=== PATIENT | female | born 2000 | race Hispanic/Latino ===

== ENCOUNTER 2021-12-24 13:46 | Emergency (ER) | payer OTHER ==
[~2021-12-24] VITALS: Ht 157.5 cm; Wt 48.1 kg
[2021-12-24 14:26] LABS: APPEARANCE,URINE CLOUDY (CLEAR); BILIRUBIN,URINE SMALL (NEGATIVE); COLOR,URINE YELLOW (YELLOW); GLUCOSE, URINE (UA) NEGATIVE (NEGATIVE); KETONES,URINE 15 mg/dL (NEGATIVE); LEUKOCYTE ESTERASE ,URINE NEGATIVE (NEGATIVE); NITRATE,URINE NEGATIVE (NEGATIVE); OCCULT BLOOD,URINE LARGE (NEGATIVE); PROTEIN,URINE 30 mg/dL (NEGATIVE)
[2021-12-24 14:31] LABS: BASOPHILS % (AUTO) 0.8 % (0.0-5.0); EOSINOPHILS % (AUTO) 0.4 % (0.0-8.0); HEMATOCRIT 37.9 % (36-48); LYMPHOCYTES % (AUTO) 32.1 % (21.0-51.0); MEAN CORPUSCULAR HEMOGLOBIN 30.8 pg (27.0-33.0); MEAN CORPUSCULAR HGB CONC 35.4 g/dL (32.0-36.0); MEAN CORPUSCULAR VOLUME 87.1 fL (80-100); MONOCYTES % (AUTO) 9.7 % (3.0-13.0); NEUTROPHILS % (AUTO) 56.7 % (40.0-77.0); PLATELET COUNT (AUTO) 250 K/uL (130-400); RED BLOOD CELL COUNT(AUTO) 4.35 MIL/uL (4.00-5.50); RED CELL DISTRIBUTION WIDTH 11.4 % (11.0-15.5); WHITE BLOOD COUNT (AUTO) 7.4 K/uL (4.8-10.8)
[2021-12-24 14:32] LABS: AMPHET/METH SCREEN,URINE NEGATIVE (NEGATIVE); BARBITURATE SCREEN, URINE NEGATIVE (NEGATIVE); BENZODIAZEPINES SCREEN,URINE NEGATIVE (NEGATIVE); CANNABINOID SCREEN,URINE NEGATIVE (NEGATIVE); COCAINE SCREEN,URINE NEGATIVE (NEGATIVE); OPIATE SCREEN,URINE NEGATIVE (NEGATIVE); PHENCYCLIDINE SCREEN,URINE NEGATIVE (NEGATIVE)
[2021-12-24 14:33] LABS: HCG,QUALITATIVE URINE NEGATIVE (NEGATIVE)
[2021-12-24 14:43] LABS: RBC,URINE >100 /HPF (0-1)
[2021-12-24 14:44] LABS: ALBUMIN 4.3 g/dL (3.5-5.0); CREATININE 0.8 mg/dL (0.5-1.5); POTASSIUM 3.5 mmol/L (3.5-5.1); TOTAL PROTEIN, SERUM 8.2 g/dL (6.0-8.3)
[2021-12-24 14:44] LABS: BACTERIA,URINE Few /HPF (None Seen); SQUAMOUS EPITHELIAL CELL,UR Rare /HPF (0-2)
[2021-12-24] MEDS ORDERED: LIDOCAINE HCL 2% VISCOUS 15 ML UDCUP PO ONE (15:30)
[2021-12-24] MEDS ORDERED: MAG/ALUM/SIMETH 30 ML UDCUP PO ONE (15:30)
[2021-12-24] MEDS ORDERED: FAMOTIDINE 20MG TAB PO ONE (15:30)
[2021-12-24] MEDS ORDERED: OMEP20TA20 PO (16:02)
[2021-12-24] MEDS ORDERED: FAMO-136 PO (16:02)
[2021-12-24 16:12] VITALS: BP 103/69
== END 2021-12-24 16:23 | disposition home or self-care (01) ==
LOC: EDH 13:46
DX: K29.70 Gastritis, unspecified, without bleeding (principal); K59.00 Constipation, unspecified
CPT/HCPCS: 36415; 80053; 80305; 81001; 81025; 82150; 83690; 84484; 85025; 93005

== ENCOUNTER 2022-03-24 12:37 | Emergency (ER) | payer OTHER ==
[~2022-03-24] VITALS: Ht 157.5 cm; Wt 49.0 kg
[~2022-03-24 12:37] MED LIST: FAMO-136 PO; OMEP20TA20 PO
[2022-03-24 13:29] LABS: BASOPHILS % (AUTO) 0.4 % (0.0-5.0); EOSINOPHILS % (AUTO) 0.5 % (0.0-8.0); HEMATOCRIT 38.1 % (36-48); MEAN CORPUSCULAR HEMOGLOBIN 30.9 pg (27.0-33.0); MEAN CORPUSCULAR HGB CONC 35.7 g/dL (32.0-36.0); MEAN CORPUSCULAR VOLUME 86.6 fL (80-100); MONOCYTES % (AUTO) 7.3 % (3.0-13.0); NEUTROPHILS % (AUTO) 67.7 % (40.0-77.0); PLATELET COUNT (AUTO) 245 K/uL (130-400); RED CELL DISTRIBUTION WIDTH 11.5 % (11.0-15.5); WHITE BLOOD COUNT (AUTO) 7.6 K/uL (4.8-10.8)
[2022-03-24] MEDS ORDERED: ONDANSETRON 4MG INJ IVP SCH (13:30)
[2022-03-24 13:39] LABS: CARBON DIOXIDE 28 mmol/L (21-32); CHLORIDE 101 mmol/L (101-111); GLUCOSE,RANDOM 102 mg/dL (70-105); POTASSIUM 3.1 mmol/L (3.5-5.1); SODIUM SERUM 136 mmol/L (136-145); UREA NITROGEN, BLOOD 12 mg/dL (7-18)
[2022-03-24 13:40] VITALS: BP 121/63
[2022-03-24 13:40] LABS: HCG,QUALITATIVE URINE NEGATIVE (NEGATIVE)
[2022-03-24 13:46] LABS: ALANINE AMINOTRANSFERASE 13 U/L (12-78); ALBUMIN 4.3 g/dL (3.5-5.0); ASPARTATE AMINOTRANSFERASE 15 U/L (10-37)
[2022-03-24 13:49] LABS: CRP QUANTITATIVE < 2.00 mg/L (0.00-9.0)
[2022-03-24 13:50] LABS: CREATININE 0.6 mg/dL (0.5-1.5); GLOMERULAR FILTR. RATE CALC 135 mL/min (>60)
[2022-03-24 13:52] LABS: APPEARANCE,URINE CLEAR (CLEAR); BILIRUBIN,URINE NEGATIVE (NEGATIVE); COLOR,URINE YELLOW (YELLOW); GLUCOSE, URINE (UA) NEGATIVE (NEGATIVE); KETONES,URINE NEGATIVE (NEGATIVE); LEUKOCYTE ESTERASE ,URINE NEGATIVE Leu/uL (NEGATIVE); NITRATE,URINE NEGATIVE (NEGATIVE); OCCULT BLOOD,URINE NEGATIVE (NEGATIVE); PH,URINE 5.5 (5.0-8.0); PROTEIN,URINE 20 mg/dL (NEGATIVE); UROBILINOGEN,URINE 0.2 mg/dL (0.2-1.0)
[2022-03-24] MEDS ORDERED: POTASSIUM BICARB/CIT AC 25 MEQ TABLET.EFF PO SCH (14:00)
[2022-03-24 14:06] LABS: MUCUS,URINE FEW LPF (None Seen); SQUAMOUS EPITHELIAL CELL,UR FEW /HPF (0-2)
[2022-03-24] MEDS ORDERED: LACT10SO9 PO (15:24)
[2022-03-24] MEDS ORDERED: LACTULOSE 20 GM/30 ML UDCUP PO ONE (15:30)
== END 2022-03-24 15:33 | disposition home or self-care (01) ==
LOC: EDH 12:37
DX: K59.00 Constipation, unspecified (principal); E87.6 Hypokalemia
CPT/HCPCS: 99284; 74176; 96374; 80053; 85025; 86140; 81001; 81025; 36415; J2405